=== PATIENT | male | born 2000 | race Caucasian/White ===

== ENCOUNTER 2022-11-23 14:49 | Emergency (ER) | payer SELFPAY ==
--- NOTE | 2022-11-23 14:52 | ED_ITS ---
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 He states that approximately 2:00 p.m. he consumed chicken salad sandwich that contained tree nuts. He notices after consuming the whole sandwich. He quickly then developed some throat swelling but states that has now completely resolved without any intervention. He states he feels completely back to normal and is ready to leave the ED. He has 3 epi pens on his possession. He has no other medical complaints or systemic concerns. Related Data Allergies Allergy/AdvReac Type Severity Reaction Status Date / Time piperacillin [From Zosyn] Allergy Anaphylaxis Verified 11/23/22 14:52 tazobactam [From Zosyn] Allergy Anaphylaxis Verified 11/23/22 14:52 tree nut Allergy Anaphylaxis Verified 11/23/22 14:52 Review of Systems Review of Systems: Yes all other systems are reviewed and are negative [facility] Social History Social History Advance Directives: No Advance Directives Information Provided: No Physical Exam ED Vital Signs: Vital Signs - 24 hr 11/23/22 14:53 Temperature 96.8 F Pulse Rate 85 Respiratory Rate 16 Blood Pressure 133/82 Pulse Oximetry 96 Oxygen Delivery Method Room Air BMI result Body Mass Index 25.2 Patient appears resting comfortably in bed. His airway is patent. Tongue is normal in size and freely mobile. Sublingual spaces soft. There is no pharyngeal edema. His lungs are clear and heart is regular. Abdomen is soft and nontender. There are no rash present to his extremities. He is ambulating in the ED without difficulty. Course Course Course Narrative: RME performed by Clarissa Patterson PA-C. Patient is a 22 year old assigned male at presenting to the emergency department with throat swelling. Patient states that he feels like it's getting better but he thought he better come get checked out. Patient placed back in the waiting room pending room availability and results. 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 He has been examined now for 2-1/2 hours following the ingestion. He has no signs of an allergic reaction and is requesting to be discharged. Physical exam and vitals are reassuring. At this time will be safe for discharge home. He has EpiPen in his possession. Return precautions provided questions answered. Differential Diagnosis Differential Diagnoses: The differential diagnosis associated with the presentation includes Allergic reaction, anaphylaxis, pharyngitis Discharge Plan Discharge Clinical Impression: Allergic reaction Patient Disposition: Home, Self-Care Instructions: General Allergic Reaction (ED) Additional Instructions: You have been monitored in the emergency department without any signs of an allergic reaction. You have your EpiPen. Please avoid eating your known allergens. Follow-up the primary care doctors as needed. Return for any new or worsening symptoms.
[2022-11-23 14:53] VITALS: BP 133/82; PULSE 85; RESP 16; TEMP 36; O2SAT 96; BMI 25.2
== END 2022-11-23 17:12 | disposition home or self-care (01) ==
PROVIDERS: Emergency Provider Physician Assistant
DX: T78.40XA Allergy, unspecified, initial encounter (principal); X58.XXXA Exposure to other specified factors, initial encounter
CPT/HCPCS: 99282